=== PATIENT | female | born 1960 | race Caucasian/White ===

== ENCOUNTER 2021-09-21 10:08 | Emergency (ER) | payer BC ==
[~2021-09-21] VITALS: Ht 167.6 cm; Wt 75.0 kg
[2021-09-21] MEDS ORDERED: POLY17PO10 PO (13:59)
[2021-09-21] MEDS ORDERED: PROCHC RC (13:59)
[2021-09-21 14:17] VITALS: BP 146/83
== END 2021-09-21 14:30 | disposition home or self-care (01) ==
LOC: ER 10:09
DX: K59.00 Constipation, unspecified (principal); K64.8 Other hemorrhoids; Z88.1 Allergy status to other antibiotic agents; Z79.899 Other long term (current) drug therapy
CPT/HCPCS: 74018; 99283